=== PATIENT | female | born 1955 | race Caucasian/White ===

== ENCOUNTER → 2024-01-08 | Outpatient (CLI) | payer MEDICARE ==
[2024-01-08] VITALS (10 sets, daily range): BP systolic 90–147; BP diastolic 52–70; PULSE 63–73; TEMP 97.5
[~2024-01-08] VITALS: Ht 172.7 cm; Wt 74.9 kg
[~2024-01-08] MED LIST: AMOXICILLIN 8751 TAB PO; CHANTIX 1MG1 MG PO; GLUCOPHAGE XR500 M1 PO; IRON TABLETS325 MG PO; LEVOXYL0.112 MG PO; LEXAPRO 10MG10 MG PO; LIPITOR20 MG PO; Midazolam 2 MG/2 ML VIAL IV SCH; PLAVIX 75MG TAB75 MG PO; PRILOSEC 20MG20 MG PO; PRINZIDE 25 MG-1 TAB PO; SYNTHROID0.112 MG/T PO; VITAMIN C500 MG PO; VOLTAREN GEL 1%1 TU TP; ZESTORETIC 25 M1 TAB PO; ZYLOPRIM 100MG100 MG PO; fentaNYL 50 MCG/ML 2 ML VIAL IV SCH
[2024-01-08 12:54] LABS: BASO % 0.8 % (0.0-2.0); EOS # 0.3 K/mm3 (0.0-0.7); EOS % 5.9 % (0.0-4.0); GRAN # 2.5 K/mm3 (1.4-6.5); GRAN % 51.2 % (42.2-75.2); HEMOGLOBIN 10.9 g/dl (12.5-16.0); LYMPH # 1.7 K/mm3 (1.2-3.4); MEAN CELL VOLUME 85 fl (80.0-100.0); MEAN CORPUSCULAR HEMOGLOBIN 28 pg (27-31); MEAN CORPUSCULAR HGB CONC 33 g/dl (33.0-37.0); MEAN PLATELET VOLUME 10.9 fl (7.4-10.4); MONO # 0.3 K/mm3 (0.1-0.6); MONO % 6.9 % (1.7-9.3); PLATELET COUNT 172 K/mm3 (130-400); RED BLOOD COUNT 3.94 M/mm3 (4.10-5.30); REDCELL DISTRIBUTION WIDTH-CV 13.4 % (11.5-14.5)
[2024-01-08 12:59] LABS: HEMATOCRIT 33.5 % (37.0-47.0)
--- NOTE | 2024-01-08 13:04 | NUR ---
pt to ct per ambulation. Pt positioned in prone position on ct table. Monitors applied and O2 on at 2l/nc.
--- NOTE | 2024-01-08 13:25 | NUR ---
Specimen obtained by Dr Greene and given to lab personnel.
== END ==
LOC: COL.RAD 11:33
PROVIDERS: Nurse Practitioner
DX: C18.2 Malignant neoplasm of ascending colon (principal)
CPT/HCPCS: C1830; J2250; J3010